=== PATIENT | male | born 1975 | race Asian ===

== ENCOUNTER 2017-06-16 20:24 | Emergency (ER) | payer BC ==
[~2017-06-16] VITALS: Ht 172.7 cm; Wt 110.5 kg
[2017-06-16 20:36] VITALS: TEMP 37.1; Ht 172.7 cm; Wt 110.5 kg
[2017-06-16] MEDS ORDERED: LISI-461 PO (20:55)
[2017-06-16] MEDS ORDERED: FEXO1TAB58 PO (20:56)
[2017-06-16] MEDS ORDERED: TRIA1SPR4 NAE (20:56)
[2017-06-16] MEDS ORDERED: MULT-506 PO (20:56)
[2017-06-16] MEDS ORDERED: GELATIN SPONGE 12-7MM ONE (21:35)
--- NOTE | 2017-06-16 21:43 | EMERGENCY ROOM VISIT NOTE ---
ED Visit Note First contact with patient: 21:16 CHIEF COMPLAINT: Skin avulsion of left third fingertip HISTORY OF PRESENT ILLNESS: Patient is a [id number] 41-year-old male who was using a form builder knife and accidentally cut tip of the right third finger. The bleeding has been continuous since then as a steady ooze and won't stop with prolonged direct pressure. There is mild constant pain. He was seen at [facility] and they were also unable to get the bleeding stopped, thus sent him here for evaluation. REVIEW OF SYSTEMS: Review of systems as per HPI. All other systems reviewed were negative. At least 6 systems reviewed. PMH: Electronic medical records are reviewed and summarized as above/below. See Problem List. Tetanus is up-to-date. SOCIAL HISTORY: Patient lives at home with his family. Employed. Does not smoke. PHYSICAL EXAM: Vital Signs: Reviewed Nurse's notes. There is a soft tissue skin avulsion of the radial aspect of the left third finger, through the corner of the nail distally. There is no active bleeding at time of exam. EMERGENCY DEPARTMENT COURSE: The patient was seen and evaluated as above. Bleeding is now controlled. The area was cleansed gently with saline. There is no repairable laceration. Gelfoam was applied to the wound and then a dressing. Wound care measures were discussed with the patient. Problem List Medical Problems: (1) Asthma Status: Chronic (2) Hypertension Status: Chronic Surgical Problems: (1) History of eye surgery Status: Resolved (2) History of vasectomy Status: Resolved Current/Historical Medications Scheduled Fexofenadine-Pseudoephedrine (Marisabel-D 24 Hour Allergy), 1 TAB PO DAILY Lisinopril (Zestril), 10 MG PO QAM Multivitamin (Multivitamin), 1 TAB PO DAILY Triamcinolone Acetonide (Nasal (Nasacort Allergy 24Hr), 1 SPRAY KYUNG DAILY Allergies Coded Allergies: Cephalexin (Verified Allergy, Mild, rash, 06/16/17) Trolamine (Verified Allergy, Mild, rash, 06/16/17) Uncoded Allergies: PENICILLIN (Allergy, Mild, rash, 06/16/17) Vital Signs Date Time Temp Pulse Resp B/P (MAP) Pulse Ox O2 Delivery O2 Flow Rate FiO2 06/16/17 22:01 75 20 132/96 96 06/16/17 20:36 37.1 70 18 149/92 97 Room Air Departure Information Impression Primary Impression: Avulsion of skin of finger Referrals Greta Acosta M.D. (PCP) Patient Instructions My [facility] Additional Instructions Keep dressing in place for 48 hrs, then remove. Soak foam in water until it falls off easily, then clean wound daily, cover with an antibiotic ointment and keep covered until it heals. Return for any signs of infection (increasing redness, swelling, drainage). Ice and elevate for swelling and pain. Ibuprofen 600 mg and Tylenol 1000 mg every 6 hrs for pain. Problem Qualifiers Primary Impression: Avulsion of skin of finger Encounter type: initial encounter Qualified Codes: S61.209A - Unspecified open wound of unspecified finger without damage to nail, initial encounter
[2017-06-16 22:01] VITALS: BP 132/96; PULSE 75; O2SAT 96
== END 2017-06-16 22:02 | disposition home or self-care (01) ==
LOC: C.EDB 20:24 → C.EDD 22:02
DX: S61.212A Laceration without foreign body of right middle finger without damage to nail, initial encounter (principal); W26.0XXA Contact with knife, initial encounter; Y92.9 Unspecified place or not applicable; Y93.G1 Activity, food preparation and clean up; J45.909 Unspecified asthma, uncomplicated; I10 Essential (primary) hypertension